=== PATIENT | female | born 1945 | race Hispanic/Latino ===

== ENCOUNTER → 2025-03-29 | Outpatient (REF) | payer MEDICARE, BC ==
[~2025-03-29] MED LIST: Z.0.BONIVA150 MG PO; Z.0.CELEBREX200 MG PO
== END ==
LOC: EDSTATUS 10:00 → MRI 10:30
PROVIDERS: ATTEND Family Medicine
DX: M54.14 Radiculopathy, thoracic region (principal)
CPT/HCPCS: 72146